=== PATIENT | female | born 1970 | race Caucasian/White ===

== ENCOUNTER 2016-05-27 07:18 | Day surgery (SDC) | payer OTHER ==
[~2016-05-27] VITALS: Ht 162.6 cm; Wt 78.9 kg
[~2016-05-27 07:18] MED LIST: 0.9% Sodium Chloride 1,000 ML IV SCH; ALBU8.5H2 INHALATION; CYCL5TAB PO; DXM4T PO; FEXO-46 PO; FLUT250D2 IH; IBUP800T28 PO; MONT10TA23 PO; OMEP40CA36 PO; Sodium Chloride LOK Flush 10 mL Syringe IV PRN; fentaNYL-PF 50 mCg/mL 2 mL Inj IVPUSH PRN
[2016-05-27 07:31] VITALS: BP 155/88; PULSE 83; RESP 16; O2SAT 97
[2016-05-27] MEDS ORDERED: FLUT15.88 NS (07:31)
[2016-05-27 08:31] VITALS: BP 118/82; PULSE 80; RESP 12; O2SAT 92
[2016-05-27 08:43] VITALS: BP 113/72; PULSE 78; RESP 14; O2SAT 94
[2016-05-27 08:49] VITALS: BP 142/91; PULSE 93; RESP 14; O2SAT 97
--- NOTE | 2016-05-27 18:19 | ENDO ---
[address] [address] ENDOSCOPY PROCEDURE PATIENT: MELI URENA : 1970 MR#: [id number] ADMIT: 05/27/2016 JOB ID: [id number] PRIMARY PROVIDER: Arianna Brown DO. PROCEDURE: Esophagogastroduodenoscopy with biopsies. INDICATIONS: A 46-year-old female with chronic reflux, somewhat refractory to PPI. That said, when she misses a dose of proton pump inhibitor, she is actually worse. EGD is thus pursued. EQUIPMENT: GIF-H180. SEDATION: 1. 10 mg Versed. 2. 200 mcg fentanyl. COMPLICATIONS: None identified. PROCEDURE INFORMATION: After the risks and benefits were accomplished, sedation was achieved as above. Lidocaine swish and swallow was utilized as well. The scope was introduced into the mouth through the bite block, and advanced under direct visualization to the second portion of the duodenum. The scope was slowly withdrawn to carefully examine the mucosa for any defects or lesions. Retroflexed views were accomplished in the stomach. The stomach was decompressed. The scope removed from the patient who tolerated the procedure well. FINDINGS: 1. Duodenum. No pathology identified from the bulb through to the second portion. 2. Stomach: No outlet obstruction. No ulcers. No mass lesions. Retroflexed views of the LES disclosed a small sliding hiatal hernia. Minimal gastropathy was seen throughout and random biopsy was taken for exclusion of Helicobacter or any other underlying histopathology. 3. Esophagus: The squamocolumnar junction correlated with the top of the gastric folds. The patient had a fairly normal-appearing but slightly irregular Z-line at the GE junction, which was 38 cm from the incisors. No acute erosive changes. No strictures. No mass lesions. The remainder of the esophagus appeared normal. ENDOSCOPIC DIAGNOSES: 1. Small sliding hiatal hernia. 2. Minimal gastropathy. RECOMMENDATIONS: 1. Await histopathology. 2. The patient is encouraged to be more consistent with an attempt at b.i.d. PPI therapy for now. 3. If refractory symptoms of postprandial nausea and/or dyspepsia persist in spite of b.i.d. therapy, then I would recommend pursuit of a gallbladder source. (I.e., ultrasound plus or minus HIDA scan imaging.)
--- NOTE | 2016-05-28 12:10 | PATH ---
SURGICAL PATHOLOGY Attending Physician:Avery Dominguez CASE STATUS: Signed Out PATIENT NAME: MELI URENA PID: [id number] : 1970 DATE COLLECTED:05/27/2016 18:01 SPECIMEN: Gastric, Biopsy CLINICAL HISTORY: GASTRIC BIOPSY FINAL DIAGNOSIS: Gastric Biopsy: Mucosal hyperemia without associated significant inflammation involving fundic mucosa. Negative for evidence of Helicobacter. Negative for intestinal metaplasia. Negative for dysplasia and malignancy. ICD10 R10.13 GROSS DESCRIPTION: The specimen is received in one formalin filled container labeled with the patient's name, sublabeled "gastric" and consists of a 0.3 x 0.3 x 0.2 CM portion of tissue which is entirely submitted in one cassette. 05/27/2016 [facility] ICD-9 CODES: CPT CODES: 1: 87078 Electronically Signed Out Doug Cespedes MD [facility] Pathology [facility] [address], [place] [address] Technical component performed at [facility], [facility] [address], [place], [address]
== END 2016-05-27 23:59 | disposition home or self-care (01) ==
LOC: END 07:18
PROVIDERS: ATTEND Internal Medicine Gastroenterology
DX: K31.89 Other diseases of stomach and duodenum (principal); K44.9 Diaphragmatic hernia without obstruction or gangrene; K21.9 Gastro-esophageal reflux disease without esophagitis; J45.909 Unspecified asthma, uncomplicated
CPT/HCPCS: 43239; 99153; G0500; J2250; J7030